=== PATIENT | female | born 1970 | race Two or more races ===

== ENCOUNTER → 2016-12-12 | Outpatient (CLI) | payer BC | END | disposition disaster alternative care site (69) | LOC: GRAD 07:16 | DX: M25.561 Pain in right knee (principal); M17.11 Unilateral primary osteoarthritis, right knee; M23.221 Derangement of posterior horn of medial meniscus due to old tear or injury, right knee; M71.21 Synovial cyst of popliteal space [Baker], right knee | CPT/HCPCS: A9270 ==